=== PATIENT | female | born 1945 | race Asian ===

== ENCOUNTER 2021-07-27 19:12 | Emergency (ER) | payer OTHER ==
[~2021-07-27] VITALS: Ht 157.5 cm; Wt 59.0 kg
[2021-07-27 19:30] VITALS: BP 164/82
[2021-07-27] MEDS ORDERED: METF-1211 PO (19:34)
== END 2021-07-27 20:16 | disposition left against medical advice (07) ==
LOC: EMS 19:19
DX: R20.0 Anesthesia of skin (principal); Z53.21 Procedure and treatment not carried out due to patient leaving prior to being seen by health care provider